=== PATIENT | female | born 1945 | race Hispanic/Latino ===

== ENCOUNTER → 2019-09-29 | Outpatient (CLI) | payer MEDICARE | LOC: SLEEP 20:00 | PROVIDERS: ATTEND Internal Medicine Critical Care Medicine | DX: G47.33 Obstructive sleep apnea (adult) (pediatric) (principal) | CPT/HCPCS: 95806 ==

== ENCOUNTER → 2020-05-09 | Outpatient (CLI) | payer MEDICARE | LOC: SLEEP 19:30 | PROVIDERS: ATTEND Internal Medicine Critical Care Medicine | DX: G47.33 Obstructive sleep apnea (adult) (pediatric) (principal); Z11.59 Encounter for screening for other viral diseases | CPT/HCPCS: 95811; U0002 ==